=== PATIENT | male | born 1965 | race Caucasian/White ===

== ENCOUNTER 2023-11-17 19:13 | Inpatient (IN) | payer SELFPAY ==
[2023-11-17] VITALS (32 sets, daily range): BP systolic 122–156; BP diastolic 65–94; PULSE 94–120; RESP 16–36; TEMP 36.2–37; O2SAT 85–98
--- NOTE | ~2023-11-17 | XR_ITS ---
EXAMINATION: XR chest 1V portable Exam Date/Time: 11/17/2023 20:28 MANAGER ETHICS HISTORY: dyspnea Comparison: None. RESULT: Lines, tubes, and devices: Linear opacity projecting over the left apex, presumably artifact. Lungs and pleura: Mild diffuse reticular opacities and mild patchy bilateral mid and lower lung grou ndglass opacities. Cardiomediastinal silhouette: Unremarkable. Other: No acute osseous or upper abdominal finding. IMPRESSION: Pulmonary opacities may reflect mild interstitial edema versus atypical infection. Reviewed, dictated and finalized at location K. GER ETHICS IMPRESSION: Pulmonary opacities may reflect mild interstitial edema versus atypical infecti on.
--- NOTE | ~2023-11-17 | CT_ITS ---
EXAMINATION: CTA chest PE protocol DATE: 11/17/2023 21:26 INDICATION: dyspnea, tachycardia, elevated d dimer TECHNIQUE: Computed tomography angiography (CTA) of the chest was performed with 100 mL Omnipaque-350 intravenous contrast timed to evaluate the pulmonary arteries. Coronal maximum intensity projection 3D-reconstructions were created by the technologist. The dose-length product (DLP) was 307.74 mGy-cm. Automated exposure control and iterative reconstruction technique were employed. COMPARISON: X-ray chest, same date. FINDINGS: Lung parenchyma and airways: Biapical pleural scarring. Motion artifact in the lower lungs. Scattered tree-in-bud opacities, most pronounced in the right lower lobe. Scattered tree-in-bud and centrilobu lar nodular opacities in the left upper lobe. Pleura: Unremarkable. Thoracic inlet, axillae and chest wall: Unremarkable. Thoracic aorta: Mild calcification. Mediastinum: Normal. Heart and pericardium: Normal. Coronary artery calcifications: Absent. Upper abdomen: No significant finding. Bones: No acute osseous finding. Pulmonary arteries: Study quality: Motion artifact limits evaluation in the subsegmental branches of the bilateral lower lobes. No pulmonary emboli detected. IMPRESSION: Motion artifact limits evaluation in the subsegmental branches of the bilateral lower lobes. Otherwis e, no CT evidence of acute pulmonary embolus. Pulmonary opacities may represent atypical infection in the appropriate clinical context. Reviewed, dictated and finalized at location K. LER APPRENTICE IMPRESSION: Motion artifact limits evaluation in the subsegmental branches of the bilateral lower lobes. Otherwise, no CT evidence of acute pulmonary embolus. Pulmonary opacities may represent atypical infection in the appropriate clinica l context.
--- NOTE | 2023-11-17 19:47 | ECG_ITS ---
Measurements Intervals [place] Rate: 103 P: 66 CO: 132 QRS: 71 QRSD: 69 T: 77 QT: 337 QTc: 442 Interpretive Statements SINUS TACHYCARDIA BORDERLINE ECG NO PREVIOUS ECG AVAILABLE FOR COMPARISON Electronically Signed On 11-18-2023 7:26:50 CONTRACT AGENT by Chi Topete D.O.
--- NOTE | 2023-11-17 19:48 | ED.URI ---
HPI - URI/Sore Throat General Chief Complaint: Upper Respiratory Infection Stated Complaint: SOB Time Seen by Provider: 11/17/23 19:31 History of Present Illness HPI Narrative: 58-year-old M with a hx of emphysema and asthma reports for evaluation for dyspnea x2 weeks. Pt states he went to [facility] 2 weeks ago for shortness of breath and fevers with a cough. He was diagnosed with a once a a and discharged home with 5 days of prednisone. Patient states he went back to [facility] a few days later due to persistent dyspnea. He was advised to continue his nebulized treatments and inhalers. Patient reports today for persistent dyspnea. He states he is having trouble taking a deep breath. He denies recent fevers, chest pain, nausea or vomiting, diarrhea, abdominal pain, lower extremity edema, history of VTE. He does report a productive cough that is increased from his baseline. He normally smokes 1 pack per day since he was 11 years old, however has not been smoking since being diagnosed with the flu. Patient states he has been using his nebulizer treatments without relief. He does not wear oxygen at baseline. States his normal oxygen saturations are around 90%. Related Data Allergies Allergy/AdvReac Type Severity Reaction Status Date / Time codeine Allergy Rash Verified 11/17/23 19:17 Review of Systems Review of Systems: CONSTITUTIONAL: Denies fever, chills, or sweats. EYES: Denies visual changes, redness, or discharge. ENT: See HPI CARDIOVASCULAR: Denies chest pain, palpitations, or edema. RESPIRATORY: see HPI. GASTROINTESTINAL: Denies abdominal pain, nausea, vomiting, or diarrhea. GENITOURINARY: Denies dysuria or hematuria. SKIN: Denies rash or itching. MUSCULOSKELETAL: Denies back pain, joint pain, or myalgia. NEUROLOGIC: Denies headache, numbness, or weakness. PSYCHIATRIC: Denies anxiety or depression. Exam Narrative: GENERAL: Well-appearing, well-nourished, and in no acute distress. patient resting comfortably in exam bed. He is satting 90% on room air in no respiratory distress HEAD: Normocephalic, atraumatic. EYES: PERRLA and EOMI. ENT: Nares clear, no rhinorrhea or epistaxis. Mucous membranes moist. NECK: Supple. CHEST: expiratory wheezing throughout all lung walker. Expiratory phase lower than inspiratory phase. No rales or rhonchi. HEART: Regular rate and rhythm. No murmur heard. Normal peripheral pulses. ABDOMEN: Soft, nontender, nondistended, normal active bowel sounds. EXTREMITIES: Normal range of motion. No edema. SKIN: Warm, dry, no rash. NEURO: No focal deficits. Alert and oriented x3 Course Vital Signs Vital signs: Vital Signs Temperature 97.1 F L 11/17/23 19:14 Pulse Rate 94 11/17/23 19:14 Respiratory Rate 16 11/17/23 19:14 Blood Pressure 142/76 H 11/17/23 19:14 Pulse Oximetry 85 L 11/17/23 19:14 Oxygen Delivery Room Air 11/17/23 19:14 Temperature 98.6 F 11/17/23 19:23 Pulse Rate 113 H 11/17/23 21:45 Respiratory Rate 29 H 11/17/23 21:45 Blood Pressure 140/90 11/17/23 21:01 Pulse Oximetry 89 L 11/17/23 21:45 Oxygen Delivery Room Air 11/17/23 19:26 MDM - URI/Sore Throat MDM Narrative Medical decision making narrative: 58-year-old male with a history of emphysema and asthma reports for evaluation for dyspnea and increased productive cough for the past 2 weeks since he was diagnosed with flu a. See HPI for further history. Triage vitals are significant for blood pressure 142/76 and hypoxia of 85 on room air. Upon my evaluation, the patient is satting 90-91% on room air and resting comfortably in exam bed. He is not in active respiratory distress, no use of accessory muscles. He is found to be tachycardic at 115bpm. Cbc without leukocytosis or anemia. Chemistry significant for a bicarb of 31 with a gap of 7. He is fluid positive. D-dimer elevated at 0.69. CTA shows shows motion artifact limits evaluation of subsegmental b
[2023-11-17] MEDS: methylPREDNISolone SOD SUCC 125 MG VIAL IV PUSH (19:59)
[2023-11-17] MEDS: MAGNESIUM SULF 2 GM/WATER 50ML 2 GM/50 ML BAG IVPB (20:00)
[2023-11-17 20:07] LABS: Basophils Absolute Auto 0.1 K/mm3 (0.0-0.1); Basophils Percent Auto 0.7 % (0.2-1.2); Eosinophils Absolute Auto 0.2 K/mm3 (0-0.3); Eosinophils Percent Auto 3.1 % (0-4.4); Hematocrit 46.8 % (42.0-52.0); Hemoglobin 15.2 g/dL (14.0-18.0); Immature Granulocyte Absolute 0.24 K/mm3 (0.00-0.031); Immature Granulocyte Percent A 3.3 % (0-0.5); Lymphocytes Absolute Auto 1.94 K/mm3 (0.9-3.2); Lymphocytes Percent Auto 26.5 % (18.3-44.2); Mean Corpuscular HGB Conc 32.5 g/dl (32-36); Mean Corpuscular Hemoglobin 31.2 pg (26-34); Mean Corpuscular Volume 96.1 fl (80-100); Monocytes Absolute Auto 0.7 K/mm3 (0.1-0.6); Monocytes Percent Auto 10.1 % (2.6-8.5); Neutrophils Absolute Auto 4.1 K/mm3 (1.3-6.7); Neutrophils Percent Auto 56.3 % (45.5-73.1); Platelet Count Result 350 k/mm3 (150-375); Red Blood Count 4.87 M/mm3 (4.6-6.20); Red Cell Distribution Width 12.4 % (11.5-14.5); White Blood Count 7.3 K/mm3 (4.5-10.0)
[2023-11-17] MEDS: IPRATROPIUM BR 0.02% INH SOLN 0.5 MG/2.5 ML VIAL INHALATION ×3 (20:12→21:00)
[2023-11-17] MEDS: ALBUTEROL SULFATE NEB 2.5 MG/3 ML INH INHALATION ×3 (20:12→21:00)
[2023-11-17 20:18] LABS: Prothrombin Time 13.2 Seconds (11.1-14.7)
[2023-11-17 20:19] LABS: Alanine Aminotransferase 33 U/L (6-50); Albumin Level 4.1 g/dL (3.5-5.1); Alkaline Phosphatase 129 U/L (38-126); Anion Gap 7 mmol/L (8-16); Aspartate Amino Transferase 32 U/L (17-59); Bilirubin,Total 0.5 mg/dL (0.2-1.3); Blood Urea Nitrogen 10 mg/dL (9-20); Calcium 8.6 mg/dL (8.4-10.2); Carbon Dioxide 31 mmol/L (22-30); Chloride 107 mmol/L (98-107); Estimated CRCL calculation 62 ml/min; Estimated Glomerular Filt Rate > 60; Glucose 91 mg/dL (65-110); Partial Thromboplastin Time 38.3 SECONDS (22.3-36.8); Potassium 4.1 mmol/L (3.4-5.0); Sodium 145 mmol/L (137-145)
[2023-11-17 20:21] LABS: D Dimer 0.69 ug/mL (<0.48)
[2023-11-17 20:30] LABS: NT Pro B Type Natriuretic Pept 23 pg/mL (19.9-100); Troponin I < 0.012 ng/mL (0.000-0.034)
[2023-11-17 20:45] LABS: Influenza A QL RT-PCR Positive (Negative); Influenza B QL RT-PCR Negative (Negative); RSV RNA, RT-PCR Negative (Negative); SARS-CoV-2 RNA PCR Negative (Negative)
[2023-11-17] MEDS: SODIUM CHLORIDE 0.9% IV 1,000 ML 999 ML IV CONT ×2 (21:00→23:02)
[2023-11-17 21:20] LABS: Procalcitonin 0.1 ng/mL
[2023-11-17 22:52] LABS: Alveolar/Arterial O2 Gradient 52.7 mmHg; Fractional Inspired Oxygen 21 %; HCO3 ABG 22.1 mEq/l (22.0-26.0); Oxygen Content ABG 18.5 %vol (16.0-22.0); Oxygen Saturation ABG 88.5 % (95.0-100.0); PCO2 ABG 35.9 mmHg (35.0-45.0); PO2 FiO2 Ratio Arterial Blood 2.57 %; Total Hemoglobin 15.1 g/dL (12.0-18.0); pH ABG 7.407 (7.350-7.450)
--- NOTE | 2023-11-17 22:52 | PM.IMHP ---
H&P: HPI History of Present Illness Date/Time: 11/17/23 22:52 Chief Complaint: Patient came to the ER for evaluation for his worsening shortness of breath Narrative: Pleasant gentleman who is a chronic smoker since 11 years of age, is complaining of worsening shortness of breath for the last 10 days. He went to [facility] and was diagnosed with flu on [facility]. He was started on steroids without much benefit.He went to the back to the [facility] one more time and was advised to continue with his nebulizers without much benefit. Finally he came to our ER for evaluation. Workup was done which confirmed influenza A as well as finding consistent with acute exacerbation of asthma/COPD. He also had mildly elevated D-dimer prompting a CTA of chest which ruled out pulmonary embolism but showed finding consistent with atypical pneumonia. He is being admitted for IV antibiotics, IV steroids and close medical management. Review of Systems Review of Systems: 14 systems were reviewed with pertinent positives and negatives per HPI. Except as documented in the HPI/progress notes, all other systems were reviewed and are negative. All systems reviewed & are unremarkable except as noted in HPI and below PMFSH Family History Family History Mother Cancer Social History Social History Smoking packs per day: 1 Smoking cigarettes per day: 20.0 Years smoked: 47 Smoking pack-years: 47.00 Smoking status: Current every day smoker Tobacco type: cigarettes Alcohol intake: current Drinks per week: 10 Substance use type: marijuana Do You Feel Safe in your Home?: Yes Lack of Transportation: No Lack of Food: Never True Current Housing: I Have Housing Concerned About Future Housing: No Difficulty Paying Gas/Electric Bills: No Difficulty Paying for Meds: No Currently Unemployed: No Education: Trade/Vocational Certificate Difficulty w/ Childcare or Family Care: No Spiritual care concerns: No Meds Home Medications and Allergies Home Medications Medication Instructions Recorded Confirmed Type Zekexela Inhub 1 puff inhalation BID 11/18/23 11/18/23 History albuterol sulfate 4 puff inhalation QID PRN 11/18/23 11/18/23 History Shortness Of Breath albuterol sulfate 2.5 mg/3 mL 2.5 mg inhalation Q6H PRN 11/18/23 11/18/23 History (0.083 %) solution for nebulization Shortness Of Breath Or Wheezing Allergies Allergy/AdvReac Type Severity Reaction Status Date / Time codeine Allergy Rash Verified 11/18/23 00:29 Vital Signs Vital Signs - 24 hr 11/17/23 19:14 11/17/23 19:23 11/17/23 19:24 Temperature 36.2 C L 37.0 C Pulse Rate 94 120 H Respiratory Rate 16 20 Blood Pressure 142/76 H 150/85 H Pulse Oximetry 85 L 90 91 Oxygen Delivery Room Air Room Air 11/17/23 19:24 11/17/23 19:26 11/17/23 20:13 Temperature Pulse Rate 115 H 104 H Respiratory Rate 25 H Blood Pressure Pulse Oximetry 90 Oxygen Delivery Room Air 11/17/23 21:28 11/17/23 19:25 11/17/23 19:27 Temperature Pulse Rate 108 H 116 H 113 H Respiratory Rate 22 H 21 H 24 H Blood Pressure 150/85 H Pulse Oximetry 91 89 L Oxygen Delivery 11/17/23 19:30 11/17/23 19:32 11/17/23 19:45 Temperature Pulse Rate 118 H 120 H 111 H Respiratory Rate 20 24 H 21 H Blood Pressure 125/65 Pulse Oximetry 91 90 91 Oxygen Delivery 11/17/23 19:46 11/17/23 20:09 11/17/23 20:15 Temperature Pulse Rate 107 H 103 H 104 H Respiratory Rate 19 28 H 23 H Blood Pressure 122/94 H Pulse Oximetry 94 90 90 Oxygen Delivery 11/17/23 20:16 11/17/23 20:30 11/17/23 20:31 Temperature Pulse Rate 103 H 100 103 H Respiratory Rate 22 H 25 H 28 H Blood Pressure 133/82 130/83 Pulse Oximetry 96 98 97 Oxygen Delivery 11/17/23 20:45 11/17/23 20:47 11/17/23 21:00 Temperature
[2023-11-17 22:54] LABS: Device ROOM AIR; Modified Allen's Test Pass; Oxyhemoglobin 87.1 % THb (90.0-100.0); Site Drawn RIGHT RADIAL
[2023-11-17] MEDS: OSELTAMIVIR PHOSPHATE 75 MG CAPSULE PO (23:24)
[2023-11-17 23:35] LABS: Lactic Acid Reflex 1.4 mmol/L (0.7-2.0)
[2023-11-17] MEDS: AZITHROMYCIN 500 MG/NS 250 ML 500 MG/250 ML BAG 250 MG IVPB (23:48)
[2023-11-18] VITALS (16 sets, daily range): BP systolic 159–160; BP diastolic 82–97; PULSE 75–106; RESP 17–32; TEMP 36.3–36.9; O2SAT 93–97; BMI 24.3
--- NOTE | 2023-11-18 00:10 | ADMGEN ---
This patient, Oswald Baptiste, was admitted to Medical Room 241-01. Patient/family oriented to hospital policies and general routines including ID bracelet, bed and alarms, visiting hours, pain management, procedures, bathroom and other care routines, personal items, smoking policy, room service/diet, and visiting hours. Information on how to activate the Rapid Response Team has been discussed. Patient/Family are encouraged to report perceived risks to care and to ask questions if they do not understand what they are told or what they should do.
[2023-11-18] MEDS: methylPREDNISolone SOD SUCC 125 MG VIAL 60 MG IV PUSH ×3 (05:32→21:03)
[2023-11-18 07:05] LABS: Basophils Percent Auto 0.3 % (0.2-1.2); Hematocrit 44.2 % (42.0-52.0); Hemoglobin 14.3 g/dL (14.0-18.0); Immature Granulocyte Absolute 0.16 K/mm3 (0.00-0.031); Immature Granulocyte Percent A 2.1 % (0-0.5); Lymphocytes Absolute Auto 0.49 K/mm3 (0.9-3.2); Lymphocytes Percent Auto 6.5 % (18.3-44.2); Mean Corpuscular HGB Conc 32.4 g/dl (32-36); Mean Corpuscular Volume 95.7 fl (80-100); Mean Platelet Volume 9.1 fl (7.4-10.4); Monocytes Absolute Auto 0.1 K/mm3 (0.1-0.6); Monocytes Percent Auto 1.2 % (2.6-8.5); Neutrophils Absolute Auto 6.8 K/mm3 (1.3-6.7); Neutrophils Percent Auto 89.9 % (45.5-73.1); Platelet Count Result 343 k/mm3 (150-375); Red Blood Count 4.62 M/mm3 (4.6-6.20); Red Cell Distribution Width 12.3 % (11.5-14.5); White Blood Count 7.6 K/mm3 (4.5-10.0)
[2023-11-18 07:15] LABS: Alanine Aminotransferase 32 U/L (6-50); Alkaline Phosphatase 131 U/L (38-126); Anion Gap 10 mmol/L (8-16); Aspartate Amino Transferase 34 U/L (17-59); Bilirubin,Total 0.7 mg/dL (0.2-1.3); Blood Urea Nitrogen 14 mg/dL (9-20); Calcium 8.4 mg/dL (8.4-10.2); Carbon Dioxide 23 mmol/L (22-30); Chloride 106 mmol/L (98-107); Estimated CRCL calculation 84 ml/min; Estimated Glomerular Filt Rate > 60; Glucose 138 mg/dL (65-110); Magnesium 2.3 mg/dL (1.6-2.3); Potassium 4.3 mmol/L (3.4-5.0); Sodium 139 mmol/L (137-145)
[2023-11-18] MEDS: ACETAMINOPHEN 325 MG TABLET 650 MG PO ×2 (08:27→21:03)
[2023-11-18] MEDS: OSELTAMIVIR PHOSPHATE 75 MG CAPSULE PO ×2 (08:27→21:04)
[2023-11-18] MEDS: ENOXAPARIN 30 MG/0.3 ML SYRINGE SUB-Q (08:28)
[2023-11-18] MEDS: guaiFENesin 12 HR 600 MG TABCR 1200 MG PO ×2 (09:39→21:04)
--- NOTE | 2023-11-18 11:01 | PM.IMPN ---
Progress Note: A&P Assessment and Plan (1) COPD exacerbation: Code(s): J44.1 - Chronic obstructive pulmonary disease with (acute) exacerbation Status: Acute (2) Atypical pneumonia: Code(s): J18.9 - Pneumonia, unspecified organism Status: Acute Assessment and Plan: Continue IV abx of Rocephin and Azithromycin Continue to monitor daily labs for trends Continue to monitor VS including Oxygen saturations for trends Guaifenesin 1200 mg po Q12 hrs is added to regimen for assistance with expectoration. Currently not meeting Sepsis criteria. Change Duoneb to scheduled every 6 hours. Continue PRN Albuterol Continue Solumedrol 60 mg IVP Q 8 hrs (3) Influenza A: Code(s): J10.1 - Influenza due to other identified influenza virus with other respiratory manifestations Status: Acute Assessment and Plan: Continue Tamiflu Continue Supportive Care Plan as in #1 (4) Nicotine dependence, cigarettes, with other nicotine-induced disorders: Code(s): F17.218 - Nicotine dependence, cigarettes, with other nicotine-induced disorders Status: Acute Assessment and Plan: Offered nicotine patch, refused saying he doesn't need. Tobacco abuse counseling was performed of 6 minutes. (5) Acute respiratory failure with hypoxia: Code(s): J96.01 - Acute respiratory failure with hypoxia Status: Resolved Time Spent With Patient Time with patient: 15 - 25 minutes Subjective Date/time seen: 11/18/23 0815 Interval history: This pt was examined at the bedside today in interval assessment after being admitted to the hospital for treatment of Atypical Pneumonia, + Influenza A, and Acute Respiratory Failure with hypoxia on admission. He appears to be comfortable, but pt states he is not feeling any improvement. He feels winded with any activity despite receiving nebulizer treatments and steroids. He remains on IV abx currently of Rocephin and Azithromycin. He is not requiring any supplemental oxygen at this time, however, his VS show some Tachycardia and Tachypnea at times. He has been unable to expectorate any sputum thus far for culture. He denies any CP, overt dyspnea except with exertion, and no N/V/D. Review of Systems Review of Systems: All systems reviewed & are unremarkable except as noted in HPI and below Exam Narrative: PHYSICAL EXAMINATION: Vital signs: Please see the chart General physical exam: Patient lying in bed, breathing fast, appears to be tired and fatigued Head/eyes: Atraumatic, EOMI, PERRLA ENT: Moist mucous membranes, nasal passages clear Neck: Supple, full range of motion, trachea midline CVS: S1 + S2, regular rate and rhythm, no murmurs Respiratory: Bilaterally decreased air entry in both lung walker, mild B/L crackles, + tachypnea, + scattered wheezing and rhonchi Abdomen: Soft, non-tender, bowel sounds +ve, no organomegaly Extremities: No clubbing, no cyanosis, no edema, no calf tenderness Musculoskeletal: Moves all, adequate range of motion, no muscle spasms Skin: Warm, dry, no jaundice, no cyanosis Neurological: Awake, alert, oriented x 3, cranial nerves II-XII intact, no focal neurological deficits Psychiatric: Normal mood, non suicidal Objective Data Vital Signs Vital Signs: Vital Signs - 24 hr 11/17/23 19:14 11/17/23 19:23 11/17/23 19:24 Temperature 97.1 F L 98.6 F Pulse Rate 94 120 H Respiratory Rate 16 20 Blood Pressure 142/76 H 150/85 H Pulse Oximetry 85 L 90 91 Oxygen Delivery Room Air Room Air 11/17/23 19:24 11/17/23 19:26 11/17/23 20:13 Temperature Pulse Rate 115 H 104 H Respiratory Rate 25 H Blood Pressure Pulse Oximetry 90 Oxygen Delivery Room Air 11/17/23 21:28 11/17/23 19:25 11/17/23 19:27 Temperature Pulse Rate 108 H 116 H 113 H Respiratory Rate 22 H 21 H 24 H Blood Pressure 150/85 H Pulse Oximetry 91 89 L Oxygen Delivery 11/17/23 19:30 11/17/23 19:32 11/17/23 19:45
[2023-11-18] MEDS: ALBUTEROL SULFATE NEB 2.5 MG/3 ML INH INHALATION ×2 (14:44→20:23)
[2023-11-18] MEDS: IPRATROPIUM BR 0.02% INH SOLN 0.5 MG/2.5 ML VIAL INHALATION ×2 (14:44→20:23)
[2023-11-18] MEDS: AZITHROMYCIN 500 MG/NS 250 ML 500 MG/250 ML BAG 250 MG IVPB (23:21)
[2023-11-19] VITALS (8 sets, daily range): BP systolic 139–160; BP diastolic 77–82; PULSE 72–111; RESP 16–20; TEMP 36.3–36.7; O2SAT 93–96
[2023-11-19] MEDS: IPRATROPIUM BR 0.02% INH SOLN 0.5 MG/2.5 ML VIAL INHALATION ×2 (01:39→07:35)
[2023-11-19] MEDS: ALBUTEROL SULFATE NEB 2.5 MG/3 ML INH INHALATION ×2 (01:39→07:35)
[2023-11-19 06:05] LABS: Basophils Percent Auto 0.2 % (0.2-1.2); Hematocrit 39.7 % (42.0-52.0); Immature Granulocyte Absolute 0.21 K/mm3 (0.00-0.031); Immature Granulocyte Percent A 1.8 % (0-0.5); Lymphocytes Absolute Auto 0.51 K/mm3 (0.9-3.2); Lymphocytes Percent Auto 4.3 % (18.3-44.2); Mean Corpuscular HGB Conc 32.7 g/dl (32-36); Mean Corpuscular Hemoglobin 31.3 pg (26-34); Mean Corpuscular Volume 95.4 fl (80-100); Mean Platelet Volume 9.7 fl (7.4-10.4); Monocytes Absolute Auto 0.6 K/mm3 (0.1-0.6); Monocytes Percent Auto 4.8 % (2.6-8.5); Neutrophils Absolute Auto 10.6 K/mm3 (1.3-6.7); Neutrophils Percent Auto 88.9 % (45.5-73.1); Platelet Count Result 350 k/mm3 (150-375); Red Blood Count 4.16 M/mm3 (4.6-6.20); Red Cell Distribution Width 12.2 % (11.5-14.5); White Blood Count 11.9 K/mm3 (4.5-10.0)
[2023-11-19 06:19] LABS: Anion Gap 8 mmol/L (8-16); Blood Urea Nitrogen 19 mg/dL (9-20); Calcium 8.5 mg/dL (8.4-10.2); Carbon Dioxide 24 mmol/L (22-30); Chloride 105 mmol/L (98-107); Estimated CRCL calculation 84 ml/min; Estimated Glomerular Filt Rate > 60; Glucose 172 mg/dL (65-110); Magnesium 2.4 mg/dL (1.6-2.3); Phosphorus 2.5 mg/dL (2.5-4.5); Potassium 3.8 mmol/L (3.4-5.0); Sodium 137 mmol/L (137-145)
[2023-11-19] MEDS: methylPREDNISolone SOD SUCC 125 MG VIAL 60 MG IV PUSH (06:40)
[2023-11-19] MEDS: OSELTAMIVIR PHOSPHATE 75 MG CAPSULE PO (08:27)
[2023-11-19] MEDS: guaiFENesin 12 HR 600 MG TABCR 1200 MG PO (08:27)
[2023-11-19] MEDS: ENOXAPARIN 40 MG/0.4 ML SYRINGE SUB-Q (08:27)
--- NOTE | 2023-11-19 11:04 | PM.DS ---
DS: Admitting Diagnosis Discharge Date 11/19/23 Admitting Diagnosis COPD exacerbation, atypical pneumonia DS: Discharge Diagnosis Discharge Diagnosis (1) COPD exacerbation: Code(s): J44.1 - Chronic obstructive pulmonary disease with (acute) exacerbation Status: Acute (2) Atypical pneumonia: Code(s): J18.9 - Pneumonia, unspecified organism Status: Acute (3) Influenza A: Code(s): J10.1 - Influenza due to other identified influenza virus with other respiratory manifestations Status: Acute (4) Nicotine dependence, cigarettes, with other nicotine-induced disorders: Code(s): F17.218 - Nicotine dependence, cigarettes, with other nicotine-induced disorders Status: Acute (5) Acute respiratory failure with hypoxia: Code(s): J96.01 - Acute respiratory failure with hypoxia Status: Resolved DS: Summary Hospital Course Hospital Course: This is a 58-year-old male with a past medical history of tobacco use since the age of 11 and COPD. He was diagnosed with influenza on Tigist [facility]en and was started on steroids without much benefit. He continued to have shortness of breath and was worked up in our ED. workup confirmed influenza A positive as well as findings consistent with COPD exacerbation. He had a mildly elevated D-dimer and CTA were ruled out a pulmonary embolism. Chest x-ray consistent with atypical pneumonia and he was started on IV antibiotics. Patient improved with steroid and antibiotic therapy. On day of discharge patient did not require any oxygen supplementation nor did he complain of any shortness of breath. His lung sounds were clear although distant. Patient states he feels as if he is at his baseline and will continue his home inhalers as well as nebulizer at discharge. Time Spent with Patient Time attestation: Total time spent providing and/or coordinating discharge services: Exam Narrative: GENERAL: Comfortable, no acute distress HENMT: moist mucous membranes EYES: EOM intact b/l NECK: no lymphadenopathy RESPIRATORY: clear to auscultation CARDIO: RRR GI: soft, nontender, bowel sounds present SKIN: no rashes EXTREMITIES: no edema, redness or tenderness DS: Data Data Completed and Pending Labs on day of discharge: Labs from last 24 hours 11/19/23 05:24 WBC 11.9 H RBC 4.16 L Hgb 13.0 L Hct 39.7 L MCV 95.4 MCH 31.3 MCHC 32.7 RDW 12.2 Plt Count 350 MPV 9.7 Immature Gran % (Auto) 1.8 H Neut % (Auto) 88.9 H Lymph % (Auto) 4.3 L [place] % (Auto) 4.8 Eos % (Auto) 0.0 Baso % (Auto) 0.2 Lymph # (Auto) 0.51 L [place] # (Auto) 0.6 Eos # (Auto) 0.0 Baso # (Auto) 0.0 Abs Immat Gran (auto) 0.21 H Absolute Neuts (auto) 10.6 H Absolute Nucleated RBC 0.0 Nucleated RBC % 0.0 Sodium 137 Potassium 3.8 Chloride 105 Carbon Dioxide 24 Anion Gap 8 BUN 19 Creatinine 0.80 Estim Creat Clear Calc 84 Estimated GFR > 60 Glucose 172 H Calcium 8.5 Phosphorus 2.5 Magnesium 2.4 H Preliminary micro results at discharge 11/17/23 23:20 Blood Culture - Preliminary Blood 11/17/23 23:20 Blood Culture - Preliminary Blood Discharge Plan Discharge Attending physician on discharge: Monica Ornelas Consulting providers: Neisha Pollock; Juanita Gutierres Discharging Clinician: Thao Jones Anticipated Discharge Date/Time: 11/19/23 11:14 Patient Disposition: Home, Self-Care Activity: as tolerated Diet: heart healthy Discharge Instructions: Medications: Prednisone 60 mg for 5 more days. Augmentin twice daily for 5 more days. Azithromycin 500 daily for 3 more days. Emphysema exacerbation prevention: -Smoking cessation is pertinent -Avoid irritants such as dust or chemicals -Seek treatment when symptoms worsen -Exercising daily can help decrease breathing problems -Use pursed lip breathing. Pursed lip breathing can be used any time you feel short of breath again maura
[2023-11-19] MEDS: AMOXICILLIN/CLAVULANATE K 875-125 MG TAB 1 TABLET PO (11:52)
== END 2023-11-19 12:40 | disposition home or self-care (01) | DRG 139 ==
LOC: ANHED 22:57 → ANH2MED 23:31
PROVIDERS: Nurse Practitioner Adult Health; Admitting Provider Family Medicine; Emergency Provider Physician Assistant; Visit Provider Internal Medicine Critical Care Medicine
DX: J18.9 Pneumonia, unspecified organism (principal); J10.1 Influenza due to other identified influenza virus with other respiratory manifestations; F17.210 Nicotine dependence, cigarettes, uncomplicated; J96.01 Acute respiratory failure with hypoxia; J43.9 Emphysema, unspecified; Z20.822 Contact with and (suspected) exposure to COVID-19; Z28.21 Immunization not carried out because of patient refusal
CPT/HCPCS: 36415; 36600; 71045; 71275; 80048; 80053; 82805; 83605; 83735; 83880; 84100; 84145; 84484; 85025; 85380; 85610; 85730; 87040; 87637; 93005; 94640; 96365; 96375; 99285; A9270; J0456; J0696; J1650; J2930; J3475; J7030; Q9967